=== PATIENT | male | born 1975 | race Caucasian/White ===

== ENCOUNTER 2016-06-28 11:23 | Emergency (ER) | payer OTHER ==
--- NOTE | 2016-06-28 12:55 | DIAGNOSTIC IMAGING REPORT ---
PROCEDURE: XR FOOT 3 VIEWS - RIGHT INDICATION: TRAUMA/INJURY TECHNIQUE: Three views. COMPARISON: None. FINDINGS: Osseous structures and joint spaces are normal. IMPRESSION: 1. Normal right foot.
--- NOTE | 2016-06-28 13:28 | ED ORDER SUMMARY ---
..... Patient: ROHITH BAUTISTA OrderSheet [facility] VisitID: [id number] [address] [place] [address] 40y, M Registration Date/Time: 06/28/2016 ORDER SHEET Weight: 117.9 kg (stated) Allergies: Amoxicillin, Erythromycin, Penicillins GENERAL ORDERS: Foot 3V Right Urgent (11:35 06/28/2016 Kostas LANGLEY) (Ack 11:36 LNations ER Tech1) (12:01 Roscoe Cuadra) Dress Wounds (13:26 06/28/2016 Kostas LANGLEY) (13:35 ZECHARIAHoeraletha) MEDICATION ORDERS: IV FLUIDS: ORDER SHEET NOTES: [Electronically signed by Allen Begum R.N. (17:28 06/28/2016)] [Electronically signed by Sera Pineda MD (08:06 07/02/2016)] [Electronically locked/signed by Allen Begum R.N. (17:06/28/2016)]
--- NOTE | 2016-06-28 13:28 | ED NURSING NOTES ---
Clinical Report - Nurses [facility] [address] [place] [address] 06/28/2016 11:24 Patient: ROHITH BAUTISTA TRIAGE Triage time 11:33. Acuity: LEVEL 4. Chief Complaint: INJURY TO RIGHT FOOT. 11:33 06/28/16. 11:33 06/28/16. Alert. No acute distress. ( Pt states he tripped, and went to catch himself with his fall and hyper-extended his toes on his right foot). SEPSIS SCREEN: Sepsis Screen. Negative (no infection suspected/documented). KOKO COMA SCORE: Koko Coma Scale: 15- eyes open spontaneously (4); best verbal response- oriented x 4 (5); best motor response- obeys commands (6). --11:39 Allen Begum R.N. 11:32 06/28/16. BP: 150/82. HR: 73. RR: 18. O2 saturation: 100% on room air. Temp: 98.1 F (oral). Pain level now: 10/09. --11:39 Allen Begum R.N. Weight: 117.9 kg stated. Height/Length: 70 inches Per Patient. BMI: 37.3. --11:35 Allen Begum R.N. Medications None. --11:37 Allen Begum R.N. Medication/allergy information source: the patient. --11:39 Allen Begum R.N. Allergies Amoxicillin. Erythromycin. Penicillins. --11:37 Allen Begum R.N. History Arrived by private vehicle. Historian: patient. Accompanied by family. Primary physician ([facility]). 11:33 06/28/16. This occurred today (30 min ago). Occurred at home. Mechanism of injury: fell. He has had trouble walking. PAST MEDICAL HX: Tetanus immunization status is not up-to-date. Immunizations not up to date. SOCIAL HX: Never smoker. No alcohol use or drug use. No infectious disease exposure. ABUSE ASSESSMENT: No report of abuse. FALL RISK ASSESSMENT: Fall risk assessment completed. No fall risk identified. NUTRITIONAL RISK ASSESSMENT: The nutritional risk assessment revealed no deficiencies. FUNCTIONAL ASSESSMENT: Functional assessment: no impairments noted. LEARNING NEEDS ASSESSMENT: The learning needs assessment revealed no barriers. SKIN INTEGRITY ASSESSMENT: Skin integrity risk assessment completed. No skin integrity risk identified. --11:39 Allen Begum R.N. PROBLEMS: Abdominal Pain. Hypertension. --11:37 Allen Begum R.N. ADDITIONAL SURGERIES: Appendectomy. --11:37 Allen Begum R.N. Assessment 11:33 06/28/16. --11:39 Allen Begum R.N. Interventions 11:33 06/28/16. 11:33 06/28/16. ID and allergy band on patient. To treatment room. --11:39 Allen Begum R.N. PHYSICAL ASSESSMENT 11:38 06/28/16. Ambulatory to room. GENERAL / NEURO / PSYCH: Oriented X 4. Alert. Appears in no acute distress. EXTREMITIES: Capillary refill is less than 2 seconds in the extremities. Extremity pulses are within normal limits. Abnormal gait. Pain with weight bearing. Neuro-vascular status intact to the extremity. Right foot: tenderness. SKIN: Skin is warm and dry. --11:38 Allen Begum R.N. NURSING PROGRESS NOTES 11:34 06/28/16. The plan of care for this patient has been created. Cold pack applied. Extremity elevated. Reassurance given. Call light placed in reach. Side rails up x 2. Bed placed in lowest position. Brakes of bed on. Patient ready for evaluation- chart flagged. --11:38 Allen Begum R.N. 13:38. Applied clean dressing consisting of 4x4 gauze, following the application of antibiotic ointment (bacitracin). Secured with tape. --13:42 Delfin Abdalla. DISPOSITION / DISCHARGE 13:39 06/28/16. Condition at departure: improved. The goals identified in the patient's plan of care were met. No learning barriers present. Discharge instructions provided and reviewed with the patient. Reviewed warnings. Reviewed medication(s). Treatments reviewed. Patient verbalized understanding. Written instructions provided in [place]. The patient was discharged by the physician. He was discharged home. He left the Emergency Department ambulatory and via private vehicle. Patient driving. FALL RISK ASSESSMENT: Fall risk assessment completed. No fall risk identified. --13:39 Allen Begum R.N. 13:38 06/28/16. BP: 136/72. HR: 69. RR: 14. O2 saturation: 100% on room air. Temp: 98.2 F (oral). --13:39 Allen Begum R.N. 13:39 06/28/16. Departure time: 13:39. --13:39 Allen Begum R.N. Locked/Released at 06/28/2016 17:28 by Allen Begum R.N.
--- NOTE | 2016-06-28 13:28 | ED ORDER SUMMARY ---
..... Patient: ROHITH BAUTISTA OrderSheet [facility] VisitID: [id number] [address] [place] [address] 40y, M Registration Date/Time: 06/28/2016 ORDER SHEET Weight: 117.9 kg (stated) Allergies: Amoxicillin, Erythromycin, Penicillins GENERAL ORDERS: Foot 3V Right Urgent (11:35 06/28/2016 Kostas LANGLEY) (Ack 11:36 LNations ER Tech1) (12:01 Roscoe Cuadra) Dress Wounds (13:26 06/28/2016 Kostas LANGLEY) (13:35 ZEHCARIAHoeraletha) MEDICATION ORDERS: IV FLUIDS: ORDER SHEET NOTES: [Electronically signed by Allen Begum R.N. (17:28 06/28/2016)] [Electronically signed by Sera Pineda MD (08:06 07/02/2016)] [Electronically locked/signed by Allen Begum R.N. (17:06/28/2016)]
--- NOTE | 2016-06-28 13:28 | ED CLINICAL REPORT ---
Clinical Report - Physicians/Mid Levels [facility] [address] [place] [address] 06/28/2016 11:24 Patient: ROHITH BAUTISTA Time Seen: 12:23. Arrived- By private vehicle. Historian- patient. HISTORY OF PRESENT ILLNESS Chief Complaint: Injury to the right foot. The injury happened yesterday. (Pt tripped over furniture and hyperextended his 4th and 5th toes.). Occurred at home. Patient is experiencing moderate pain. No other injury. REVIEW OF SYSTEMS The patient sustained a laceration (Pt states the skin of his 4th toe tore during the incident.). He complains of mild pain on weight bearing. No swelling, tingling, weakness, numbness or suspected foreign body. All systems otherwise negative, except as recorded above. PAST HISTORY Problems: Hypertension. Additional Surgeries: Appendectomy. Medications: None. Allergies: Amoxicillin. Erythromycin. Penicillins. SOCIAL HISTORY Never smoker. No alcohol use or drug use. ADDITIONAL NOTES The nursing notes have been reviewed. PHYSICAL EXAM Vital Signs: 06/28/2016 11:32 BP: 150/82. HR: 73. RR: 18. O2 saturation: 100%. Temp: 98.1 F. Pain level now: 7/10. Have been reviewed. Appearance: Alert. Oriented X3. No acute distress. Head: Head atraumatic. Eyes: Pupils equal, round and reactive to light. Eyes normal inspection. ENT: Nose normal. Neck: Normal inspection. CVS: Pulses normal. Respiratory: No respiratory distress. Back: ROM normal. Skin: Skin warm and dry. Extremities: Right foot: mild tenderness and superficial 1.0 cm laceration located in the distal plantar lateral aspect of the foot and fourth and fifth toe(s). Neurovascular intact distally. No erythema, swelling, abrasion, ecchymosis or puncture wound. No foreign body or deformity. No ankle injury. Foot and ankle exam otherwise negative. Extremities otherwise negative. Neuro, Vascular and Tendons: Vascular status intact. Sensation intact. Motor intact. Tendon function intact. Gait: Gait not tested due to pain. Neuro: No motor deficit. No sensory deficit. LABS, X-RAYS, AND EKG Rt Foot X-ray: No fracture. Normal alignment. No bony lesion, air in the soft tissue or foreign body. Soft tissues normal. Joint spaces normal. Views: 3 view foot series. Technique: good. The X-rays were independently viewed by me, interpreted by the radiologist and contemporaneously by me and discussed with the radiologist. Prior films were not available for comparison. Pulse Oximetry: 06/28/2016 11:32 O2 saturation: 100%. (FIO2 - room air). Interpretation: normal. PROGRESS AND PROCEDURES Course of Care: X-ray showed no broken bones. Pt had a superficial skin tear, which did not require repair. Dressing was placed on this for the pt. Patient counseled in person regarding the patient's stable condition, test results, diagnosis and need for follow-up. Concerns were addressed. Old medical records reviewed. Disposition: Discharged. Condition: stable. CLINICAL IMPRESSION Single superficial skin avulsion of the right 5th toe.No right toenail injury or foreign body present. Sprain of the metatarsophalangeal joint of the right 4th toe and 5th toe. INSTRUCTIONS Do not work today (Mr. Bautista was at the emergency department.). (Your x-rays look good--no broken bones.). Warnings: GENERAL WARNINGS: Return or contact your physician immediately if your condition worsens or changes unexpectedly, if not improving as expected, or if other problems arise. Follow-up: Follow up with your doctor as needed. Understanding of the discharge instructions verbalized by patient. (Electronically signed by Sera Pineda MD 07/02/2016 8:06)
--- NOTE | 2016-06-28 13:28 | ED NURSING NOTES ---
Clinical Report - Nurses [facility] [address] [place] [address] 06/28/2016 11:24 Patient: ROHITH BAUTISTA TRIAGE Triage time 11:33. Acuity: LEVEL 4. Chief Complaint: INJURY TO RIGHT FOOT. 11:33 06/28/16. 11:33 06/28/16. Alert. No acute distress. ( Pt states he tripped, and went to catch himself with his fall and hyper-extended his toes on his right foot). SEPSIS SCREEN: Sepsis Screen. Negative (no infection suspected/documented). KOKO COMA SCORE: Koko Coma Scale: 15- eyes open spontaneously (4); best verbal response- oriented x 4 (5); best motor response- obeys commands (6). --11:39 Allen Begum R.N. 11:32 06/28/16. BP: 150/82. HR: 73. RR: 18. O2 saturation: 100% on room air. Temp: 98.1 F (oral). Pain level now: 10/09. --11:39 Allen Begum R.N. Weight: 117.9 kg stated. Height/Length: 70 inches Per Patient. BMI: 37.3. --11:35 Allen Begum R.N. Medications None. --11:37 Allen Begum R.N. Medication/allergy information source: the patient. --11:39 Allen Begum R.N. Allergies Amoxicillin. Erythromycin. Penicillins. --11:37 Allen Begum R.N. History Arrived by private vehicle. Historian: patient. Accompanied by family. Primary physician ([facility]). 11:33 06/28/16. This occurred today (30 min ago). Occurred at home. Mechanism of injury: fell. He has had trouble walking. PAST MEDICAL HX: Tetanus immunization status is not up-to-date. Immunizations not up to date. SOCIAL HX: Never smoker. No alcohol use or drug use. No infectious disease exposure. ABUSE ASSESSMENT: No report of abuse. FALL RISK ASSESSMENT: Fall risk assessment completed. No fall risk identified. NUTRITIONAL RISK ASSESSMENT: The nutritional risk assessment revealed no deficiencies. FUNCTIONAL ASSESSMENT: Functional assessment: no impairments noted. LEARNING NEEDS ASSESSMENT: The learning needs assessment revealed no barriers. SKIN INTEGRITY ASSESSMENT: Skin integrity risk assessment completed. No skin integrity risk identified. --11:39 Allen Begum R.N. PROBLEMS: Abdominal Pain. Hypertension. --11:37 Allen Begum R.N. ADDITIONAL SURGERIES: Appendectomy. --11:37 Allen Begum R.N. Assessment 11:33 06/28/16. --11:39 Allen Begum R.N. Interventions 11:33 06/28/16. 11:33 06/28/16. ID and allergy band on patient. To treatment room. --11:39 Allen Begum R.N. PHYSICAL ASSESSMENT 11:38 06/28/16. Ambulatory to room. GENERAL / NEURO / PSYCH: Oriented X 4. Alert. Appears in no acute distress. EXTREMITIES: Capillary refill is less than 2 seconds in the extremities. Extremity pulses are within normal limits. Abnormal gait. Pain with weight bearing. Neuro-vascular status intact to the extremity. Right foot: tenderness. SKIN: Skin is warm and dry. --11:38 Allen Begum R.N. NURSING PROGRESS NOTES 11:34 06/28/16. The plan of care for this patient has been created. Cold pack applied. Extremity elevated. Reassurance given. Call light placed in reach. Side rails up x 2. Bed placed in lowest position. Brakes of bed on. Patient ready for evaluation- chart flagged. --11:38 Allen Begum R.N. 13:38. Applied clean dressing consisting of 4x4 gauze, following the application of antibiotic ointment (bacitracin). Secured with tape. --13:42 Delfin Abdalla. DISPOSITION / DISCHARGE 13:39 06/28/16. Condition at departure: improved. The goals identified in the patient's plan of care were met. No learning barriers present. Discharge instructions provided and reviewed with the patient. Reviewed warnings. Reviewed medication(s). Treatments reviewed. Patient verbalized understanding. Written instructions provided in [place]. The patient was discharged by the physician. He was discharged home. He left the Emergency Department ambulatory and via private vehicle. Patient driving. FALL RISK ASSESSMENT: Fall risk assessment completed. No fall risk identified. --13:39 Allen Begum R.N. 13:38 06/28/16. BP: 136/72. HR: 69. RR: 14. O2 saturation: 100% on room air. Temp: 98.2 F (oral). --13:39 Allen Begum R.N. 13:39 06/28/16. Departure time: 13:39. --13:39 Allen Begum R.N. Locked/Released at 06/28/2016 17:28 by Allen Begum R.N.
--- NOTE | 2016-07-02 08:06 | ED MED RECONCILIATION SUMMARY ---
Patient: MICHELEKARLIET Richie Medication Reconciliation Report [facility] VisitID: [id number] [address] [place] [address] 40y, M Registration Date/Time: 06/28/2016 Weight: 117.9 kg Height/Length: 70 in. BMI: 37.3 ALLERGIES: Amoxicillin, Erythromycin, Penicillins The patient's Home Medications are listed below: NONE. The source(s) of the original Home Medication information: patient The following Medications were given to the patient in the Emergency Department: None. The following Medications were prescribed to the patient: None.
--- NOTE | 2016-07-02 08:06 | ED DISCHARGE INSTRUCTIONS ---
Patient: ROHITH MADSEN General Instructions [facility] VisitID: [id number] [address] [place] [address] 40y, M Registration Date/Time: 06/28/2016 Single superficial skin avulsion of the right 5th toe.No right toenail injury or foreign body present. Sprain of the metatarsophalangeal joint of the right 4th toe and 5th toe. INSTRUCTIONS Do not work today (Mr. Madsen was at the emergency department.). (Your x-rays look good--no broken bones.). Warnings: GENERAL WARNINGS: Return or contact your physician immediately if your condition worsens or changes unexpectedly, if not improving as expected, or if other problems arise. Follow-up: Follow up with your doctor as needed. Understanding of the discharge instructions verbalized by patient. ADDITIONAL INFORMATION Sprain, Toe You have a sprain which is a stretching or tearing of the ligaments that hold a joint together. There are no broken bones. Sprains take from 36 weeks to heal. A toe sprain may be treated by taping the injured toe to the next toe ("kamala taping"). This protects the injured toe and holds it in position. A minor sprain may not require any additional support. If the toenail has been severely injured, it may fall off in 12 weeks. A new one will usually start to grow back within a month. Home care The following guidelines will help you care for your injury at home: 1) Keep your leg elevated when sitting or lying down. This is very important during the first 48 hours to reduce swelling. Stay off the injured foot as much as possible until you can walk on it without pain. If needed, you may use crutches during the first week for this purpose. (Crutches can be rented at many pharmacies or surgical/orthopedic supply stores). 2) You may be given a cast shoe to wear to prevent movement in your toe. If not, you can use a sandal or any shoe that does not put pressure on the injured toe until the swelling and pain go away. If using a sandal, be careful not to strike your foot against anything, since another injury could make the sprain worse. 3) Apply an ice pack (ice cubes in a plastic bag, wrapped in a towel) over the injured area for 20 minutes every 12 hours the first day. You should continue with ice packs 34 times a day for the next two days. Continue the use of ice packs for relief of pain and swelling as needed. 4) If kamala tape was applied and it becomes wet or dirty, change it. You may replace it with paper, plastic or cloth tape. Cloth tape and paper tapes must be kept dry. Keep the kamala tape in place for at least four weeks. 5) You may use acetaminophen or ibuprofen to control pain, unless another pain medicine was prescribed.If you have chronic liver or kidney disease or ever had a stomach ulcer or GI bleeding, talk with your doctor before using these medicines.] 6) You may return to sports after healing, when you can run without pain. Follow-up care Follow up with your doctor or this facility as advised. Any X-rays you had today dont show any broken bones, breaks, or fractures. Sometimes fractures dont show up on the first X-ray. Bruises and sprains can sometimes hurt as much as a fracture. These injuries can take time to heal completely. If your symptoms dont improve or they get worse, talk with your doctor. You may need a repeat X-ray. When to seek medical care Get prompt medical attention if any of the following occur: Redness, warmth, or fluid drainage from your toe Pain or swelling increases Toes become cold, blue, numb, or tingly You have been given the following additional information: Sprain Toe Do not work today (Mr. Madsen was at the emergency department.). (Electronically signed by Sera Pineda MD 07/02/2016 8:06)
--- NOTE | 2016-07-02 08:06 | ED MAR SUMMARY ---
..... Medication Administration Record [facility] [address] [place], [place] [id number] Patient: ROHITH BAUTISTA Visit ID: [id number] 40y, M Weight: 117.9 kg Height/Length: 70 in BMI: 37.3 ALLERGIES: Amoxicillin, Erythromycin, Penicillins
--- NOTE | 2016-07-02 08:06 | ED MAR SUMMARY ---
..... Medication Administration Record [facility] [address] [place], [place] [id number] Patient: ROHITH BAUTISTA Visit ID: [id number] 40y, M Weight: 117.9 kg Height/Length: 70 in BMI: 37.3 ALLERGIES: Amoxicillin, Erythromycin, Penicillins
--- NOTE | 2016-07-02 08:06 | ED MED RECONCILIATION SUMMARY ---
Patient: MICHELEKARLIET Richie Medication Reconciliation Report [facility] VisitID: [id number] [address] [place] [address] 40y, M Registration Date/Time: 06/28/2016 Weight: 117.9 kg Height/Length: 70 in. BMI: 37.3 ALLERGIES: Amoxicillin, Erythromycin, Penicillins The patient's Home Medications are listed below: NONE. The source(s) of the original Home Medication information: patient The following Medications were given to the patient in the Emergency Department: None. The following Medications were prescribed to the patient: None.
== END 2016-06-28 13:39 | disposition home or self-care (01) ==
LOC: ED SRH 11:23
DX: S91.114A Laceration without foreign body of right lesser toe(s) without damage to nail, initial encounter (principal); S93.524A Sprain of metatarsophalangeal joint of right lesser toe(s), initial encounter; W01.0XXA Fall on same level from slipping, tripping and stumbling without subsequent striking against object, initial encounter; Y93.89 Activity, other specified; Y92.009 Unspecified place in unspecified non-institutional (private) residence as the place of occurrence of the external cause; Y99.9 Unspecified external cause status; I10 Essential (primary) hypertension; Z88.0 Allergy status to penicillin; Z88.1 Allergy status to other antibiotic agents